=== PATIENT | female | born 1955 | race Caucasian/White ===

== ENCOUNTER 2024-10-14 20:41 | Emergency (ER) | payer MEDICARE ==
[~2024-10-14] VITALS: Ht 170.2 cm; Wt 72.6 kg
[2024-10-14] MEDS ORDERED: Acetaminophen 500 MG Tab PO ONE (22:00)
[2024-10-14] MEDS ORDERED: Ketorolac Tromethamine 15mg Vial IV ONE (22:00)
[2024-10-14] MEDS ORDERED: PROPOFOL IV SCH (22:15)
[2024-10-14] MEDS ORDERED: Propofol 10mg/ml 20 ml Vial (Procedural) IV SCH (22:45)
[2024-10-14] MEDS ORDERED: FentaNYL Citrate 50 MCG/ML 2 ML Injection IV ONE (23:10)
[2024-10-14] MEDS ORDERED: OXYACE7.5T PO (23:47)
[2024-10-14] MEDS ORDERED: ACET500 PO (23:47)
[2024-10-14] MEDS ORDERED: IBUP600 PO (23:47)
[2024-10-15] MEDS ORDERED: Ondansetron HCl 2 MG / ML 2ML Vial IV ONE (00:15)
[2024-10-16] MEDS ORDERED: OXYACE7.5T PO (17:04)
== END 2024-10-16 00:33 | disposition home or self-care (01) ==
LOC: ER 20:41
DX: S82.201A Unspecified fracture of shaft of right tibia, initial encounter for closed fracture (principal); W10.1XXA Fall (on)(from) sidewalk curb, initial encounter; Z88.5 Allergy status to narcotic agent
CPT/HCPCS: 27752; 73600; 96374-59; 96375; 96375-59; 99152; 99153; 99284-25; A9270; J1885; J2405; J2704; J3010

== ENCOUNTER 2024-10-26 07:44 | Day surgery (SDC) | payer OTHER ==
[~2024-10-26] VITALS: Ht 165.1 cm; Wt 78.1 kg
[~2024-10-26 07:44] MED LIST: ACET500 PO; IBUP600 PO; OXYACE7.5T PO
[2024-10-26] MEDS ORDERED: CeFAZolin Sodium 2,000 MG VIAL ONE (08:20)
[2024-10-26] MEDS ORDERED: TRAZ150T57 PO (09:05)
[2024-10-26] MEDS ORDERED: SERT100 PO (09:06)
--- NOTE | 2024-10-26 09:14 | NUR ---
10/26/24 0914 Blaine Morgan PT AND FAMILY MADE AWARE OF DELAY BY CHARGE NURSE. PT IN BED WITH CALL LIGHT IN REACH. ANKLE ELEVATED ON PILLOW.
[2024-10-26] MEDS ORDERED: Lidocaine 1%-Epineph 1:100000 20 ML MDV ONE (11:13)
[2024-10-26] MEDS ORDERED: Bupivacaine 0.5% HCl 5 MG/ML 30MLVIAL ONE (11:13)
[2024-10-26] MEDS ORDERED: propofoL 20 ML IV ONE (11:28)
[2024-10-26] MEDS ORDERED: Midazolam HCl 1MG / ML 2ML Vial ONE (11:29)
[2024-10-26] MEDS ORDERED: FentaNYL Citrate 50 MCG/ML 2 ML Injection ONE (11:29)
[2024-10-26] MEDS ORDERED: Lactated Ringer's 1,000 ML IV ONE ×4 (11:30→15:48)
[2024-10-26] MEDS ORDERED: Ondansetron HCl 2 MG / ML 2ML Vial ONE (11:58)
[2024-10-26] MEDS ORDERED: Etomidate 2MG / ML 10ML Vial ONE (13:07)
[2024-10-26] MEDS ORDERED: OxyCODONE HCL 5 MG TAB ONE (15:42)
[2024-10-26] MEDS ORDERED: Scopolamine Hydrobromide Patch ONE ×2 (16:04→16:08)
--- NOTE | 2024-10-26 16:06 | NUR ---
10/26/24 1606 AUTUMN TERRELL PATIENT [id number] ON IS, WEAK COUGH, DROWSY. POOR EFFORT ON IS
--- NOTE | 2024-10-26 16:37 | NUR ---
10/26/24 1637 AUTUMN TERRELL PATIENT TRANSFERRED TO , SBA TO BR, VOID. FAMILY AT BEDSIDE. SATS WNL UPON RETURN TO ROOM. PT AND FAMILY EDUCATED TO ENCOURAGE PT TO DEEP BREATHE AND COUGH.
== END 2024-10-26 16:43 | disposition home or self-care (01) ==
LOC: ORSCSDS 07:44
PROVIDERS: Orthopaedic Surgery
PROC: 0QSG04Z Reposition Right Tibia with Internal Fixation Device, Open Approach (ICD-10-PCS; principal; 2024-10-26 10:00)
PROC: 0QSJ04Z Reposition Right Fibula with Internal Fixation Device, Open Approach (ICD-10-PCS; principal; 2024-10-26 10:00)
DX: S82.841A Displaced bimalleolar fracture of right lower leg, initial encounter for closed fracture (principal); Z79.899 Other long term (current) drug therapy; K21.9 Gastro-esophageal reflux disease without esophagitis
CPT/HCPCS: A9270; C1713; C1769; J0690; J2250; J2405; J2704; J3010; J7120